=== PATIENT | female | born 1930 | race Caucasian/White ===

== ENCOUNTER 2017-01-05 12:50 | Outpatient (CLI) | payer MEDICARE ==
--- NOTE | 2017-01-05 13:43 | RAD ---
THREE VIEWS LUMBOSACRAL SPINE: COMPARISON: MRI lumbar spine 10/31/16. HISTORY: Spondylolisthesis in the lumbar region. FINDINGS: Lateral views of the cervical spine were performed in neutral, flexion, and extension. There is gra de I anterolisthesis of L4 on L5. The vertebral bodies demonstrate normal height without fracture. The alignment of the spine is unchanged with flexion and extension. Posterior facet arthrosis is s een in the lower lumbosacral spine. IMPRESSION: Degenerative change of the lower lumbosacral spine with unchanged alignment with bending. POS: RAMESH
== END 2017-01-05 12:51 | disposition home or self-care (01) ==
LOC: TBSIIMAG 12:50
PROVIDERS: ATTEND Neurological Surgery
DX: M43.16 Spondylolisthesis, lumbar region (principal); M47.817 Spondylosis without myelopathy or radiculopathy, lumbosacral region
CPT/HCPCS: 72100

== ENCOUNTER 2017-01-25 08:53 | Outpatient (CLI) | payer MEDICARE | END 2017-01-25 08:54 | disposition home or self-care (01) | LOC: LABBT 08:53 | PROVIDERS: ATTEND Neurological Surgery | DX: Z01.818 Encounter for other preprocedural examination (principal); M43.16 Spondylolisthesis, lumbar region ==

== ENCOUNTER 2017-02-01 06:02 | Day surgery (SDC) | payer MEDICARE ==
[2017-01-25 09:23] VITALS: BMI 32.9
--- NOTE | 2017-02-01 02:28 | HP ---
HISTORY OF PRESENT ILLNESS: Ms. Andujar is a pleasant 87-year-old woman who presents for evaluation o f low back pain which she also terms as bilateral lower extremity weakness. She reports what sounds to be neurogenic claudication symptoms, but also has developed some difficulty with standing from a seated position. MRI at [facility] reveals severe canal and foraminal stenosis at L4-L5 with a gra de I slip. There is distraction at the facet joints bilaterally as well. She has had injections wi th Dr. Milner which helped some anterior thigh pains, which she no longer has then referred to us f or further evaluation. PAST MEDICAL HISTORY: Breast cancer, hyperlipidemia, dyspepsia, osteoporosis, irritable bowel syndr ome, Meniere's disease, diverticulosis, vertigo, and tinnitus. ALLERGIES: KEFLEX. PHYSICAL EXAMINATION: PSYCHIATRIC: The patient is alert and oriented x3. NEUROLOGIC: Gait is antalgic. She uses a walker for assistance. Lower extremity: Motor exam reve als full strength bilaterally in all muscle groups in lower extremities. She has a negative straigh t leg raise bilaterally. She has normal reflexes bilaterally at the patella. ASSESSMENT: Neurogenic claudication and spondylolisthesis. PLAN: We did obtain flexion, extension views of her lumbar spine, which shows stability at the slip . So I discussed the decompressive surgery with her. Dr. Watson then met with the patient, reviewed imaging and ultimately advocated for an L4-L5 decompression. He explained to the patient the risks , benefits, and alternatives to the procedure. The patient expressed understanding and would like t o move forward with surgery as discussed. I do believe the patient is mentally competent and capabl e of making medical decisions for herself and we will move forward with surgery as planned. This is Joel Koenig PA-C, dictating under Dr. Watson.
[2017-02-01] MEDS ORDERED: Clindamycin/D5W 900 mg/50 ml Premix Bag ONE ×2 (06:39→14:21)
[2017-02-01] MEDS ORDERED: Levofloxacin 500 mg/D5W 100 ml Premix Bag ONE (06:40)
[2017-02-01] MEDS ORDERED: Thrombin 5000 UNITS/5 ML VIAL ONE (06:59)
[2017-02-01] MEDS ORDERED: Bupivacaine PF 0.5% 30 ML VIAL ONE (06:59)
[2017-02-01] MEDS ORDERED: Bupivacaine/Epinephrine 0.25% 30 ML VIAL ONE (06:59)
[2017-02-01] MEDS ORDERED: Fentanyl 250 MCG/5 ML VIAL ONE (07:51)
[2017-02-01] MEDS ORDERED: Lidocaine 1% PF 5 ML VIAL ONE (08:39)
[2017-02-01] MEDS ORDERED: Glycopyrrolate 0.2 MG/ML 5 ML SYRINGE ONE (08:39)
[2017-02-01] MEDS ORDERED: Propofol 200 MG/20 ML VIAL ONE (08:39)
[2017-02-01] MEDS ORDERED: Ondansetron HCl/PF 4 MG/2 ML Vial ONE ×2 (08:39→10:25)
[2017-02-01] MEDS ORDERED: Fentanyl 100 MCG/2 ML VIAL ONE (10:30)
[2017-02-01] MEDS ORDERED: Metoclopramide HCl 10 MG/2 ML VIAL ONE (11:00)
[2017-02-01] MEDS ORDERED: traMADol HCl 50 MG TAB ONE ×2 (12:52→13:36)
--- NOTE | 2017-02-03 08:47 | OP ---
DATE OF PROCEDURE: 02/01/2017 SURGEON: Jv Watson M.D. VP OF MARKETING: Joel Koenig PA-C INDICATION: Pain. DIAGNOSIS: Lumbar stenosis. PROCEDURE: L4-5 lumbar decompression. ANESTHESIA: General. TECHNIQUE: The patient was brought into the operating room and placed under general anesthesia. She was flipped from a supine to a prone position on the operating room table. A linear incision was pl anned over the L4-L5 segment. After prepping and draping and after an appropriate operative pause, t he incision was created. Soft tissues were swept away from midline. Self-retaining retractors were placed in the wound for optimal exposure. After confirming the appropriate level with C-arm fluorosc opy, a high-speed cutting drill bit as well as 2, 3 and 4 mm Kerrisons used to perform a laminectomy at the L4-5 segment. The laminectomy included the medial aspect of the facet joints to decompress th e central canal and the lateral recesses. After complete decompression, the wound was irrigated. He mostasis was maintained throughout. The wound was then closed in anatomic layers and a pressure dres sing was applied. There were no known procedural complications.
--- NOTE | 2017-02-24 08:45 | PRG ---
DATE OF PROCEDURE: 02/01/2017 SURGEON: Jv Watson M.D. RADIO ADJUSTER: Joel Koenig PA-C INDICATION: Pain. DIAGNOSIS: Lumbar stenosis. PROCEDURE: L4-5 lumbar decompression. ANESTHESIA: General. TECHNIQUE: The patient was brought into the operating room and placed under general anesthesia. She was flipped from a supine to a prone position on the operating room table. A linear incision was pl anned over the L4-L5 segment. After prepping and draping and after an appropriate operative pause, t he incision was created. Soft tissues were swept away from midline. Self-retaining retractors were placed in the wound for optimal exposure. After confirming the appropriate level with C-arm fluorosc opy, a high-speed cutting drill bit as well as 2, 3 and 4 mm Kerrisons used to perform a laminectomy at the L4-5 segment. The laminectomy included the medial aspect of the facet joints to decompress th e central canal and the lateral recesses. After complete decompression, the wound was irrigated. He mostasis was maintained throughout. The wound was then closed in anatomic layers and a pressure dres sing was applied. There were no known procedural complications.
== END 2017-02-01 15:25 | disposition home or self-care (01) ==
LOC: SDC 06:02
PROVIDERS: ATTEND Neurological Surgery
PROC: 00NY0ZZ Release Lumbar Spinal Cord, Open Approach (ICD-10-PCS; principal; 2017-02-01)
DX: M48.062 Spinal stenosis, lumbar region with neurogenic claudication (principal); M43.16 Spondylolisthesis, lumbar region; M81.0 Age-related osteoporosis without current pathological fracture; K58.9 Irritable bowel syndrome, unspecified; H81.09 Meniere's disease, unspecified ear; H93.19 Tinnitus, unspecified ear; Z79.82 Long term (current) use of aspirin; Z79.899 Other long term (current) drug therapy; Z91.018 Allergy to other foods; Z88.1 Allergy status to other antibiotic agents; Z96.649 Presence of unspecified artificial hip joint; Z90.710 Acquired absence of both cervix and uterus; Z90.12 Acquired absence of left breast and nipple; Z98.890 Other specified postprocedural states; Z85.3 Personal history of malignant neoplasm of breast
CPT/HCPCS: 76001; 96374; J1956; J2001; J2405; J2704; J2765; J3010; J3490; S0020

== ENCOUNTER 2017-03-09 11:30 | Outpatient (CLI) | payer MEDICARE | END 2017-03-09 11:31 | disposition home or self-care (01) | LOC: BICRAD 11:30 | PROVIDERS: ATTEND Physician Assistant | DX: S99.921A Unspecified injury of right foot, initial encounter (principal) ==

== ENCOUNTER 2018-10-01 01:06 | Emergency (ER) | payer MEDICARE ==
[2018-10-01 02:37] LABS: #Basophils 0.1 thou/uL (0.0-0.2); #Eosinphils 0.1 thou/uL (0.0-0.7); #Lymphocytes 2.3 thou/uL (1.20-3.40); #Monocytes 0.3 thou/uL (0.11-0.59); %Basophils 0.8 % (0.0-1.0); %Eosinophils 1.7 % (0.0-10.0); %Lymphocytes 33.9 % (21.0-51.0); %Monocytes 4.8 % (0.0-10.0); %Neutrophils 58.8 % (42.0-75.0); Hemoglobin 13.1 g/dL (12.0-16.0); Mean Corpuscular HGB CONC 31.7 g/dL (32.0-36.0); Mean Corpuscular Hemoglobin 30.2 pg (27.0-31.0); Mean Corpuscular Volume 95.3 fL (78.0-98.0); Mean Platelet Volume 7.6 fL (7.4-10.4); Platelet Count 188 thou/uL (130-400); RBC Distribution Width 11.7 % (11.5-14.5); Red Blood Cell (RBC) Count 4.34 mill/uL (4.20-5.40); White Blood Cell (WBC) Count 6.7 thou/uL (4.8-10.8)
[2018-10-01 02:58] LABS: ALT (SGPT) 15 U/L (8-55); AST (SGOT) 14 U/L (5-34); Albumin 3.7 g/dL (3.4-4.8); Alkaline Phosphatase 42 U/L (40-150); Anion Gap 11 mmol/L (10-20); BUN (Urea Nitrogen) 23 mg/dL (9.8-20.1); Bilirubin, Total 0.6 mg/dL (0.2-1.2); Calc. Creatinine Clearance 0 mL/min (70-130); Calcium 9.8 mg/dL (7.8-10.44); Carbon Dioxide 31 mmol/L (23-31); Chloride 105 mmol/L (98-107); Estimated GFR-MDRD 64; Globulin 2.4 g/dL (2.4-3.5); Glucose 163 mg/dL (83-110); Potassium 4.6 mmol/L (3.5-5.1); Protein, Total 6.1 g/dL (6.0-8.3); Sodium 142 mmol/L (136-145)
[2018-10-01 03:22] LABS: Bacteria/HPF None Seen HPF (None Seen); Bilirubin Negative (Negative); Blood, Urine Negative (Negative); Clarity Clear (Clear); Glucose, Urine (Dipstick) Normal (Negative); Leukocyte 75 Leu/uL (Negative); Nitrite Negative (Negative); Protein, Urine (Dipstick) Negative (Neg-Trace); RBC/HPF 0-3 HPF (0-3); Squamous Epithelial 0-3 HPF (0-3); Urobilinogen Normal mg/dL (Less than 2)
[2018-10-01] MEDS ORDERED: cefTRIAXone\\ROCEPHIN 1 GM VIAL ONE (04:39)
[2018-10-01] MEDS ORDERED: Ketorolac Tromethamine 30 MG/ML VIAL ONE (04:39)
[2018-10-01] MEDS ORDERED: Ondansetron ODT 4 MG TAB ONE (04:52)
--- NOTE | 2018-10-01 08:26 | CT ---
CT OF THE ABDOMEN AND PELVIS WITH IV CONTRAST: INDICATION: An 88-year-old female with back pain radiating into the right flank. COMPARISON: CT of the abdomen with and without contrast dated 10/04/2016 and 03/29/2016. A CT of the abdomen and p anshul was reviewed from 08/19/2015. A CT of the abdomen from 12/04/2006 was also reviewed. FINDINGS: There is bibasilar atelectasis. The myolipoma and left adrenal adenoma has been stable. Liver, pancreas, and spleen appear within normal limits. The complex cystic mass involving the right mid kidney is stable measuring 1.3 cm. Left renal cyst i s stable. There is a stable ectasia of the infrarenal abdominal aorta measuring 2.9 cm. There is a retroaortic left renal vein. No free fluid or enlarged lymph nodes are evident. There is scattered colonic diverticulosis. There is a moderate amount of retained stool. The small bowel is of normal caliber. Reproductive structures are surgically absent. There is a right total hip prosthesis. There is scattered degenerative and osteoarthritic change. IMPRESSION: 1. No definite acute abnormality. 2. Complex cystic mass involving the right mid kidney is stable measuring 1.3 cm. 3. Stable left adrenal adenoma and left adrenal myelolipoma. 4. Colonic diverticulosis. 5. A moderate amount of retained stool within the colon. 6. Infrarenal abdominal aortic ectasia, stable. POS: BH
[2018-10-01] MEDS ORDERED: Iopamidol 370 76% 100 ML VIAL ONE (13:34)
== END 2018-10-01 05:49 | disposition home or self-care (01) ==
LOC: ERS 01:06
DX: N12 Tubulo-interstitial nephritis, not specified as acute or chronic (principal); Z87.891 Personal history of nicotine dependence
CPT/HCPCS: 36415; 74177; 80053; 81003; 81015; 85025; 96361; 96372; 96374; J0696; J1885; Q0162; Q9967

== ENCOUNTER 2019-01-15 14:16 | Observation (INO) | payer MEDICARE ==
[~2019-01-15 14:16] MED LIST: Prevnar 13-Val Conj/PF 0.5 ML SYRINGE IM ONE
--- NOTE | 2019-01-15 15:39 | RAD ---
XR Pelvis AP STANDARD: 01/15/2019 2:34 PM CLINICAL INDICATION: Trauma COMPARISON: 01/02/2004 FINDINGS: Fracture:No fracture. Arthropathy:Scattered osteoarthritis. There is a right hip prosthesis with appropriate alignment. Incidental findings:Pelvic phleboliths. IMPRESSION: 1. No acute osseous abnormality.
--- NOTE | 2019-01-15 15:41 | RAD ---
XR Lumbar Spine 2 Or 3 View: 01/15/2019 2:34 PM CLINICAL INDICATION: Trauma COMPARISON: 01/05/2017 FINDINGS: Fracture:There is mild anterior height loss and cortical irregularity of T12 vertebral body. Arthropathy:Multilevel degenerative change of the lumbar spine with grade 1 spondylolisthesis of L4-5 . Incidental findings:Atherosclerosis. Partially imaged hip hardware. IMPRESSION: Mild anterior wedge fracture of T12. Correlate clinically.
[2019-01-15] MEDS ORDERED: HYDROcodone/Acetaminophen 5/325 mg Tablet ONE (16:31)
[2019-01-15] MEDS ORDERED: Ondansetron ODT 4 MG TAB ONE (17:38)
[2019-01-15 17:57] LABS: #Basophils 0.1 thou/uL (0.0-0.2); #Eosinphils 0.1 thou/uL (0.0-0.7); #Monocytes 0.4 thou/uL (0.11-0.59); #Neutrophils 9.6 thou/uL (1.40-6.50); %Basophils 0.7 % (0.0-1.0); %Eosinophils 0.5 % (0.0-10.0); %Lymphocytes 16.2 % (21.0-51.0); %Monocytes 3.5 % (0.0-10.0); %Neutrophils 79.1 % (42.0-75.0); Hemoglobin 15.3 g/dL (12.0-16.0); Mean Corpuscular HGB CONC 33.6 g/dL (32.0-36.0); Mean Corpuscular Hemoglobin 31.2 pg (27.0-31.0); Mean Corpuscular Volume 92.9 fL (78.0-98.0); Mean Platelet Volume 7.5 fL (7.4-10.4); Platelet Count 224 thou/uL (130-400); RBC Distribution Width 11.6 % (11.5-14.5); Red Blood Cell (RBC) Count 4.88 mill/uL (4.20-5.40); White Blood Cell (WBC) Count 12.2 thou/uL (4.8-10.8)
[2019-01-15 18:17] LABS: ALT (SGPT) 21 U/L (8-55); AST (SGOT) 20 U/L (5-34); Albumin 4.4 g/dL (3.4-4.8); Alkaline Phosphatase 54 U/L (40-110); Anion Gap 13 mmol/L (10-20); BUN (Urea Nitrogen) 20 mg/dL (9.8-20.1); Bilirubin, Total 0.5 mg/dL (0.2-1.2); Calc. Creatinine Clearance 0 mL/min (70-130); Calcium 10.2 mg/dL (7.8-10.44); Carbon Dioxide 25 mmol/L (23-31); Chloride 108 mmol/L (98-107); Estimated GFR-MDRD 69; Glucose 198 mg/dL (83-110); Protein, Total 7.4 g/dL (6.0-8.3); Sodium 142 mmol/L (136-145)
--- NOTE | 2019-01-15 19:16 | RAD ---
Chest AP view INDICATION: Fall COMPARISON: May 05, 2015 2 view chest radiograph FINDINGS: Lungs:The lungs are clear Cardiac silhouette:The cardiac silhouette is accentuated due to the patient being rotated to the righ t. No definite abnormality is seen. Pulmonary vasculature:Normal Pleural spaces:No pleural effusion or pneumothorax is demonstrated. Upper abdomen:No abnormality seen. Osseous structures: No acute osseous abnormality. Additional findings:Stable surgical clips within the left axilla. IMPRESSION: No acute cardiopulmonary abnormality. Some limitation exam as above.
[2019-01-15 21:29] LABS: Bilirubin Negative (Negative); Blood, Urine Negative (Negative); Glucose, Urine (Dipstick) 500 mg/dL (Negative); Leukocyte Negative (Negative); Nitrite Negative (Negative); Protein, Urine (Dipstick) Negative (Neg-Trace); Urobilinogen 0.2 mg/dL (Less than 2)
[2019-01-15 21:30] LABS: Clarity Hazy (Clear)
[2019-01-15] MEDS ORDERED: HYDROcodone/Acetaminophen 5/325 mg Tablet PO PRN ×2 (22:38)
[2019-01-15] MEDS ORDERED: Ondansetron ODT 4 MG TAB SL PRN (22:38)
[2019-01-15] MEDS ORDERED: Ondansetron PF 4 MG/2 ML Vial IVP PRN (22:38)
[2019-01-15] MEDS ORDERED: Acetaminophen 325 MG TAB PO PRN (22:38)
[2019-01-15] MEDS ORDERED: Sodium Chloride 0.9% 1,000 ML IV SCH (22:38)
[2019-01-16] MEDS: Sodium Chloride 0.45% 1,000 ML IV SCH ×3 (00:08→18:15)
[2019-01-16 00:26] VITALS: BMI 32.8
[2019-01-16 05:44] LABS: #Eosinphils 0.1 thou/uL (0.0-0.7); #Lymphocytes 2.1 thou/uL (1.20-3.40); #Monocytes 0.3 thou/uL (0.11-0.59); #Neutrophils 6.4 thou/uL (1.40-6.50); %Basophils 0.5 % (0.0-1.0); %Eosinophils 1.1 % (0.0-10.0); %Lymphocytes 23.6 % (21.0-51.0); %Monocytes 3.8 % (0.0-10.0); Hemoglobin 14.5 g/dL (12.0-16.0); Mean Corpuscular HGB CONC 34.1 g/dL (32.0-36.0); Mean Corpuscular Hemoglobin 31.9 pg (27.0-31.0); Mean Corpuscular Volume 93.4 fL (78.0-98.0); Mean Platelet Volume 8.1 fL (7.4-10.4); Platelet Count 202 thou/uL (130-400); RBC Distribution Width 11.7 % (11.5-14.5); Red Blood Cell (RBC) Count 4.55 mill/uL (4.20-5.40); White Blood Cell (WBC) Count 9.1 thou/uL (4.8-10.8)
[2019-01-16 06:26] LABS: ALT (SGPT) 17 U/L (8-55); AST (SGOT) 18 U/L (5-34); Albumin 3.9 g/dL (3.4-4.8); Alkaline Phosphatase 53 U/L (40-110); Anion Gap 14 mmol/L (10-20); BUN (Urea Nitrogen) 19 mg/dL (9.8-20.1); Bilirubin, Total 0.8 mg/dL (0.2-1.2); Calc. Creatinine Clearance 69 mL/min (70-130); Calcium 9.2 mg/dL (7.8-10.44); Carbon Dioxide 20 mmol/L (23-31); Chloride 108 mmol/L (98-107); Estimated GFR-MDRD 75; Globulin 2.8 g/dL (2.4-3.5); Glucose 185 mg/dL (83-110); Magnesium 2.2 mg/dL (1.6-2.6); Potassium 4.2 mmol/L (3.5-5.1); Protein, Total 6.7 g/dL (6.0-8.3); Sodium 138 mmol/L (136-145)
[2019-01-16] MEDS: HYDROcodone/Acetaminophen 5/325 mg Tablet PO PRN (16:40)
[2019-01-16] MEDS ORDERED: Senokot S 8.6-50 MG TAB PO PRN (16:42)
[2019-01-16] MEDS ORDERED: Acetaminophen 325 MG TAB PO PRN (16:42)
[2019-01-16] MEDS ORDERED: Ondansetron PF 4 MG/2 ML Vial IVP PRN (16:42)
[2019-01-16] MEDS ORDERED: Enoxaparin Sodium 40 MG/0.4 ML SYRINGE SC SCH (17:00)
[2019-01-16] MEDS ORDERED: Polyethylene Glycol OPTH DROP 15 ML BOT EA EYE PRN (17:27)
[2019-01-16] MEDS ORDERED: Dicyclomine 20 MG TAB PO PRN (17:27)
[2019-01-16] MEDS ORDERED: Dextrose 5% in Water 1,000 ML IV PRN (17:29)
[2019-01-16] MEDS ORDERED: Dextrose 50% Abboject 50 ML SYRINGE SLOW IVP PRN (17:29)
[2019-01-16] MEDS: Sodium Chloride 0.9% 1,000 ML IV SCH (18:28)
[2019-01-16] MEDS: Famotidine 20 MG TAB PO SCH (20:32)
--- NOTE | 2019-01-16 20:42 | HP ---
PRESENTING COMPLAINT: Back pain after fall. HISTORY OF PRESENT ILLNESS: The patient with a past medical history of Meniere disease, hyperlipidemia, history of breast cancer, status post left mastectomy, presented with status post fall at home. As per the patient, she was coming out of the bed, when she slipped and hit her back to the ground and complaining of back pain. Initial workup in the emergency room showed T12 anterior mild wedge fracture. The patient due to intractable pain, being admitted for pain control. The patient also complained of mild nausea. Denies vomiting, diarrhea, or constipation. Complains of increased urination, which is chronic. Denies any fever production or swelling of the feet. Complains of mild headache. Also being complaining of dizziness, which as per the patient is chronic due to Meniere disease. Currently pain is 5/5. As per the patient, increase in movement causing her more pain. SYSTEMIC REVIEW: As mentioned above. PAST MEDICAL HISTORY: As mentioned above. PAST SURGICAL HISTORY: History of mastectomy, history of hysterectomy. SOCIAL HISTORY: Denies smoking, alcohol abuse, or drug abuse. ALLERGIES: TO CEPHALEXIN. HOME MEDICATIONS: 1. Dicyclomine. 2. Cranberry. 3. Polyethylene glycol. 4. Aspirin. PHYSICAL EXAMINATION: VITAL SIGNS: Blood pressure 183/81, temperature 98.4, pulse 75, respirations 20, and oxygen saturation 94%. GENERAL: The patient lying in bed comfortably, not in any distress. HEENT: Conjunctive are normal. Oral mucosa mildly dry. NECK: Supple. No JVD. No lymphadenopathy. CHEST: Normal vesicular breathing. No rhonchi. No wheezing. HEART: Sound normal. No murmur, gallop, or rub. ABDOMEN: Soft and benign. No tenderness or visceromegaly. EXTREMITIES: Negative edema in feet. No rash. No cyanosis. Increased pain in thoracic, lower vertebral area. LABORATORY DATA: CMP unremarkable. LFTs normal, alkaline phosphatase 53. Vitamin B12, 288. Folic acid 17. CBC, unremarkable. UA negative. Pelvis x-ray, no acute osseous abnormality. Lumbar spine x-ray, mild anterior wedge fracture of T12, correlate anteriorly. X-ray chest, no acute cardiopulmonary abnormality. HOSPITAL SUMMARY: 1. The patient is status post mechanical fall with back pain and x-ray lumbar spine positive for mild anterior wedge fracture of T12. ED physician spoke with Neurosurgery Team, physician culinary assistant, Joel Koenig, recommended LSO brace, PT/OT, and pain control. We will continue pain medications. We will request Neurosurgery to discuss the plan with the patient and family. We will continue pain medication as needed. The patient advised to mobilize. 2. History of Meniere disease. Continue meclizine as needed. As per the patient, she does not use any medication at home. 3. History of left breast cancer, status post mastectomy. 4. Deep venous thrombosis and gastrointestinal prophylaxis. Plan discussed with the patient and nursing staff. Job ID: [id number]
[2019-01-17 05:41] LABS: #Basophils 0.1 thou/uL (0.0-0.2); #Eosinphils 0.1 thou/uL (0.0-0.7); #Monocytes 0.4 thou/uL (0.11-0.59); #Neutrophils 4.7 thou/uL (1.40-6.50); %Basophils 0.7 % (0.0-1.0); %Eosinophils 2.1 % (0.0-10.0); %Lymphocytes 27.2 % (21.0-51.0); %Monocytes 4.8 % (0.0-10.0); %Neutrophils 65.2 % (42.0-75.0); Hemoglobin 14.5 g/dL (12.0-16.0); Mean Corpuscular Hemoglobin 30.9 pg (27.0-31.0); Mean Corpuscular Volume 93.5 fL (78.0-98.0); Mean Platelet Volume 7.9 fL (7.4-10.4); Platelet Count 181 thou/uL (130-400); RBC Distribution Width 11.6 % (11.5-14.5); White Blood Cell (WBC) Count 7.3 thou/uL (4.8-10.8)
[2019-01-17 05:59] LABS: Anion Gap 12 mmol/L (10-20); BUN (Urea Nitrogen) 14 mg/dL (9.8-20.1); Calc. Creatinine Clearance 66 mL/min (70-130); Calcium 9.1 mg/dL (7.8-10.44); Carbon Dioxide 25 mmol/L (23-31); Chloride 109 mmol/L (98-107); Estimated GFR-MDRD 72; Glucose 200 mg/dL (83-110); Potassium 4.1 mmol/L (3.5-5.1); Sodium 142 mmol/L (136-145)
[2019-01-17] MEDS: HYDROcodone/Acetaminophen 5/325 mg Tablet PO PRN ×4 (07:50→22:35)
[2019-01-17] MEDS: Famotidine 20 MG TAB PO SCH ×2 (07:50→20:36)
[2019-01-17] MEDS: Enoxaparin Sodium 40 MG/0.4 ML SYRINGE SC SCH (07:52)
[2019-01-17] MEDS: Sodium Chloride 0.9% 1,000 ML IV SCH (07:52)
[2019-01-17] MEDS: Aspirin 325 MG TAB PO SCH (07:52)
[2019-01-17] MEDS: HumaLOG 300 UNITS/3 ML VIAL SC PRN (12:23)
[2019-01-17] MEDS ORDERED: Amlodipine 5 MG TAB PO SCH (14:30)
--- NOTE | 2019-01-17 15:24 | PDOC.HOSPP ---
- Subjective Encounter Date: 01/17/19 Subjective: pt seen feeling better today , says back pain getting better today with pain meds , able to walk with PT Denies chest pain, SOB headache dizziness - Objective Vital Signs & Weight: Vital Signs (12 hours) Temp Pulse Resp BP Pulse Ox 01/17/19 12:00 98.1 F 01/17/19 11:32 98.1 F 56 L 18 161/81 H 93 L 01/17/19 08:00 98.6 F 01/17/19 07:32 98.6 F 83 18 183/97 H 91 L 01/17/19 04:12 98.3 F 72 16 178/108 H 92 L Weight Admit Weight 179 lb 9.6 oz Weight 179 lb 9.6 oz I&O: 01/16/19 01/17/19 01/18/19 06:59 06:59 06:59 Intake Total 10 2915 240 Output Total 1400 Balance 10 1515 240 Result Diagrams: 01/17/19 05:20 01/17/19 05:20 Additional Labs: Accuchecks 01/17/19 01/17/19 11:35 04:40 POC Glucose 168 H 176 H Hospitalist ROS - Review of Systems Constitutional: denies: fever Eyes: denies: pain ENT: denies: ear pain Respiratory: denies: cough Cardiovascular: denies: chest pain Gastrointestinal: denies: nausea Genitourinary: denies: dysuria Musculoskeletal: reports: back pain Skin: denies: rash Neurological: denies: weakness - Medication Medications: Active Medications Generic Name Dose Route Start Last Admin Trade Name Freq PRN Reason Stop Dose Admin Hydrocodone Bitart/Acetaminophen 1 tab 01/16/19 16:18 01/17/19 13:07 Benton 5/325 PO 1 tab Q4H PRN Administration Pain Aspirin 325 mg 01/17/19 09:00 01/17/19 07:52 Aspirin PO 325 mg DAILY MANE Administration Enoxaparin Sodium 40 mg 01/17/19 09:00 01/17/19 07:52 Lovenox SC 40 mg 0900 MANE Administration Famotidine 20 mg 01/16/19 21:00 01/17/19 07:50 Pepcid PO 20 mg BID MANE Administration Insulin Human Lispro 0 units 01/16/19 17:29 01/17/19 12:23 Humalog SC 2 unit .MILD SLIDING SCALE PRN Administration Mild Correctional Scale Ondansetron HCl 4 mg 01/16/19 16:42 01/17/19 03:34 Zofran IVP 4 mg Q6H PRN Administration Nausea/Vomiting - Exam General Appearance: awake alert Eye: anicteric sclera ENT: normocephalic atraumatic Neck: supple Heart: no murmur Respiratory: no wheezes Gastrointestinal: non-tender Extremities: no clubbing Skin: no lesions Neurological: normal sensation to touch Musculoskeletal - other findings: back pain Psychiatric: A&O x 3 Hosp A/P - Plan Intractable Back pain Due to mild T12 end plate fracture , Neurosurgery recommended continue conservative approach , LSO brace better today able to walk today with PT says she lives alone and has problem walking with movement and pain gets worse with movement Continue pain meds as needed and PT HTN high bp readings possible due to pain d/magda IVF and added low dose amlodipine H/O Meniers disease says has chronic dizziness symptoms and does not take meds at home H/O Left breast ca s/p Left mastectomy f/o oncologist out pt DVT/GI prophyalxis Hard of hearing DNR Plan disposition to snf possible in am
[2019-01-17] MEDS: Morphine 2 MG/ML SYRINGE SLOW IVP PRN (19:21)
[2019-01-18] MEDS: Morphine 2 MG/ML SYRINGE SLOW IVP PRN (02:02)
[2019-01-18] MEDS: HYDROcodone/Acetaminophen 5/325 mg Tablet PO PRN ×2 (05:39→13:06)
[2019-01-18] MEDS: Enoxaparin Sodium 40 MG/0.4 ML SYRINGE SC SCH (08:14)
[2019-01-18] MEDS: Aspirin 325 MG TAB PO SCH (08:14)
[2019-01-18] MEDS: Famotidine 20 MG TAB PO SCH (08:14)
[2019-01-18 08:18] VITALS: TEMP 97.8
[2019-01-18 11:11] VITALS: BP 137/81
[2019-01-18] MEDS: HumaLOG 300 UNITS/3 ML VIAL SC PRN (11:43)
--- NOTE | 2019-01-18 13:10 | CON ---
DATE OF CONSULTATION: 01/17/2019 Ms. Andujar is an 89-year-old woman who was admitted to [facility] for fall with back pain and CT evidence of acute mild T12 compression deformity. She reports midline axial back pain in the region of this fracture. She has already been fitted for a Chairback LSO at our recommendation to the emergency department. She denies any radicular symptoms and actually has been ambulating reasonably well with a walker. From Neurosurgery's perspective, this is a definitively nonsurgical injury. We will plan to follow up with her in the outpatient setting in 2 weeks. She will need to wear the brace only when up and about and mostly just for comfort when she is lying in bed or seated, she can actually remove the brace. We will arrange followup. Job ID: [id number]
--- NOTE | 2019-01-19 02:01 | DIS ---
DATE OF ADMISSION: 01/15/2019 DATE OF DISCHARGE: 01/18/2019 DISCHARGE DIAGNOSES: 1. Intractable back pain due to mild anterior T12 endplate fracture. 2. History of Meniere disease. 3. History of left breast cancer, status post left mastectomy. 4. High blood pressure readings. 5. Hard of hearing. 6. DNR/DNI. 7. Diabetes mellitus. PHYSICAL EXAMINATION: VITAL SIGNS: Blood pressure 137/81, temperature 97.8, pulse 60, respirations 16, oxygen saturation 93% on room air. GENERAL: The patient is awake, alert, in no distress. CHEST: Normal vesicular breathing. HEART: Sounds normal. ABDOMEN: Soft. Negative edema of feet. Mild back tenderness. LABORATORY DATA: CBC unremarkable. BMP unremarkable. UA negative. X-ray of chest negative for acute findings. Pelvic x-ray negative for acute findings. Lumbar spine x-ray, mild anterior wedge fracture of T12. HOSPITAL SUMMARY: The patient, Con Ott was admitted with a fall at home while moving out of bed and hit her back and in the emergency room, workup showed mild anterior wedge fracture of T12. The patient was admitted to control pain. The patient treated with pain medications. The patient also evaluated by Neurosurgery. The patient recommended LSO brace, pain medication, physical therapy, and occupational therapy. The patient evaluated by Physical Therapy and recommended usp with rehabilitation facility. The patient currently stable, being discharged to rehabilitation facility. The patient continued home medication. The patient currently feeling better today. She is being discharged in a stable condition. Given prescription for pain medications. Job ID: [id number]
== END 2019-01-18 17:15 ==
LOC: ERS 14:16 → T4-B 17:38
PROVIDERS: ADMIT Internal Medicine; ATTEND Internal Medicine
DX: S22.088A Other fracture of T11-T12 vertebra, initial encounter for closed fracture (principal); E78.5 Hyperlipidemia, unspecified; H81.09 Meniere's disease, unspecified ear; R03.0 Elevated blood-pressure reading, without diagnosis of hypertension; Z66 Do not resuscitate; E11.9 Type 2 diabetes mellitus without complications; H91.90 Unspecified hearing loss, unspecified ear; W01.0XXA Fall on same level from slipping, tripping and stumbling without subsequent striking against object, initial encounter; Y92.003 Bedroom of unspecified non-institutional (private) residence as the place of occurrence of the external cause; Z79.82 Long term (current) use of aspirin; Z79.899 Other long term (current) drug therapy; Z88.1 Allergy status to other antibiotic agents; Z85.3 Personal history of malignant neoplasm of breast; Z90.12 Acquired absence of left breast and nipple; Z91.018 Allergy to other foods
CPT/HCPCS: 51701; 71045; 72100; 72170; 80048; 80053 ×2; 81003; 82607; 82746; 82962 ×3; 83735; 85025 ×3; 87086; 96361; 96372 ×3; 96374; 96375; 96376; 97110; 97116 ×3; 97139 ×7; 97530 ×2; 99284; G0378 ×4; 36415; 36416; A4353; J1650; J2270; J2405; Q0162

== ENCOUNTER 2019-02-19 13:04 | Outpatient (CLI) | payer MEDICARE ==
--- NOTE | 2019-02-19 13:48 | RAD ---
EXAM: XR Thoracic Spine 3 V STANDARD PROVIDED CLINICAL HISTORY: Follow-up fracture COMPARISON: Views of the lumbar spine on 01/15/2019. FINDINGS: Wedge-shaped compression fracture T12 vertebral body is present. However, the provided images are und erpenetrated which limits osseous detail on this exam. Degree of height loss anteriorly the appear mildly increased when compared to the prior exam. Remaining vertebral body heights of the thoracic sp ine are within normal limits. Multilevel osteophytes are present. No subluxation is seen. Slightly exaggerated kyphosis at the level of the compression fracture is noted. Mild S-shaped scoliotic curva ture of the thoracic spine is present. IMPRESSION: 1. Wedge-shaped compression fracture T12 vertebral body which was also seen on study of 01/15/2019. H owever, there is limited evaluation of the fracture due to overlying soft tissue density and underpenetrated technique of the exam. The degree of height loss anteriorly does appear mildly increa sed when compared to prior study. 2. Degenerative changes thoracic spine.
== END 2019-02-19 13:05 | disposition home or self-care (01) ==
LOC: TBSIIMAG 13:04
PROVIDERS: ATTEND Neurological Surgery
DX: S22.080D Wedge compression fracture of T11-T12 vertebra, subsequent encounter for fracture with routine healing (principal); M47.814 Spondylosis without myelopathy or radiculopathy, thoracic region
CPT/HCPCS: 72072

== ENCOUNTER 2019-07-24 15:49 | Observation (INO) | payer MEDICARE ==
--- NOTE | 2019-07-24 17:03 | CT ---
CT HEAD WITHOUT CONTRAST: 07/24/19 INDICATION: Fall with head injury. No comparison. FINDINGS: There is cortical atrophy consistent with age. Moderately severe chronic ischemic white matter change . 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 No hemorrhage or mass. No acute cortical infarct. Acute lacunar infarcts cannot be excluded given the chronic ische ugo change and if there are new neurological changes, recommend further evaluation with MRI. Sinuses and mastoids are clear. IMPRESSION: There are moderate to severe chronic ischemic white matter change. Lacunar infarcts could be obscured in this chronic ischemic change. There is no evidence of acute cortical infarct or hemorrhage. POS: AGW
--- NOTE | 2019-07-24 17:11 | CT ---
CT LUMBAR SPINE: 07/24/19 HISTORY: Trauma. Multiple falls with back pain. No comparison CT. Comparison made to plain films of thoracic spine dated 02/19/19 and lumbar spine nadia ed 01/15/19. FINDINGS: Severe compression deformity of the T12 vertebra is seen. There is a vertebral plana type deformity. This compression has progressed significantly when compared to the prior exam of 02/19/19. There is slight retropulsion of the posterior cortex of T12. Degenerative disc changes are seen at multiple levels with vacuum phenomenon. There is slight superior end plate compression of the L2 vertebra which also appears to represent a n ew finding when compared to the prior lumbar spine exam. This results in mild loss of central height. Anterior and posterior height is preserved. This probably represents an acute superior end plate com pression. The L3, L4 and L5 vertebrae maintain height. At the T12-L1 level, the retropulsion and disc bulge flatten the thecal sac and results in mild centr al canal stenosis. At L1-2, disc bulge flattens the thecal sac. Mild central canal stenosis. At L2-3, diffuse disc bulge with facet hypertrophy. Mild central canal stenosis. At L3-4, disc bulge and facet hypertrophy results in mild central canal stenosis. At L4-5, mild anterolisthesis. Posterior laminectomy change. Diffuse disc bulge. Facet hypertrophy. M ild central canal stenosis. At L5-S1, mild disc bulge. No significant central canal or foraminal stenosis. IMPRESSION: 1. Progression of the severe compression deformity at T12, when compared to prior plain films of 02/19/19. There is severe loss of central and anterior height. There is mild retropulsion posteriorly as described above. 2. Evidence of acute or subacute superior end plate compression of the L2 vertebra when compared to prior studies. This results in mild loss of central height. 3. Disc bulge at multiple levels as described above. 4. 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 POS: AGW
[2019-07-24] MEDS ORDERED: Ondansetron ODT 4 MG TAB PO PRN (18:23)
[2019-07-24] MEDS ORDERED: Dextrose 5% in Water 1,000 ML IV PRN (18:23)
[2019-07-24] MEDS ORDERED: Dextrose 50% Abboject 50 ML SYRINGE SLOW IVP PRN (18:23)
[2019-07-24] MEDS ORDERED: Insulin Regular 300 UNITS/3 ML VIAL SC PRN (18:23)
[2019-07-24] MEDS ORDERED: traMADol HCl 50 MG TAB PO PRN ×2 (18:26)
[2019-07-24] MEDS ORDERED: Cyclobenzaprine 10 MG TAB PO PRN (18:26)
[2019-07-24 18:30] LABS: #Basophils 0.1 thou/uL (0.0-0.2); #Lymphocytes 2.5 thou/uL (1.20-3.40); #Monocytes 0.4 thou/uL (0.11-0.59); #Neutrophils 6.1 thou/uL (1.40-6.50); %Basophils 0.8 % (0.0-1.0); %Eosinophils 0.3 % (0.0-10.0); %Lymphocytes 27.1 % (21.0-51.0); %Monocytes 4.2 % (0.0-10.0); %Neutrophils 67.6 % (42.0-75.0); Hemoglobin 15.4 g/dL (12.0-16.0); Mean Corpuscular HGB CONC 32.6 g/dL (32.0-36.0); Mean Corpuscular Hemoglobin 31.1 pg (27.0-31.0); Mean Corpuscular Volume 95.6 fL (78.0-98.0); Mean Platelet Volume 7.8 fL (7.4-10.4); Platelet Count 238 thou/uL (130-400); RBC Distribution Width 11.6 % (11.5-14.5); Red Blood Cell (RBC) Count 4.95 mill/uL (4.20-5.40); White Blood Cell (WBC) Count 9.1 thou/uL (4.8-10.8)
[2019-07-24] MEDS ORDERED: Acetaminophen 500 MG TAB PO SCH (18:45)
[2019-07-24 18:49] LABS: ALT (SGPT) 9 U/L (8-55); AST (SGOT) 14 U/L (5-34); Albumin 3.9 g/dL (3.4-4.8); Alkaline Phosphatase 58 U/L (40-110); Anion Gap 15 mmol/L (10-20); BUN (Urea Nitrogen) 18 mg/dL (9.8-20.1); Bilirubin, Total 0.5 mg/dL (0.2-1.2); Calc. Creatinine Clearance 0 mL/min (70-130); Carbon Dioxide 23 mmol/L (23-31); Chloride 108 mmol/L (98-107); Estimated GFR-MDRD 72; Glucose 102 mg/dL (83-110); Potassium 4.1 mmol/L (3.5-5.1); Protein, Total 6.9 g/dL (6.0-8.3); Sodium 142 mmol/L (136-145)
[2019-07-24] MEDS ORDERED: cloNIDine 0.1 MG TAB PO PRN ×2 (20:00→20:03)
--- NOTE | 2019-07-24 20:20 | HP ---
TRAUMA SURGEON: Rudy Fox MD CONSULTING PHYSICIAN: Mian Rodriguez MD HISTORY OF PRESENT ILLNESS: The patient is an 89-year-old female, presented to the emergency department via EMS with a history of several falls recently. She also has a history of T-spine fractures from previous falls. The patient [facility] a [facility] at her [facility], complaining of worsening back pain. Upon my evaluation, she complained of lower back pain. Her motor and sensation were intact in bilateral upper and lower extremities. She denied back pain. CT scan of the brain was negative. The patient was alert and oriented to place and person, but was not oriented to situation or time. I spoke to her son, Corrie over the phone. He reported that her mentation has been declining over the past 6 months and her physician was doing evaluations for possible dementia. He also reported that because of COVID the patients at the fpc have been locked in their rooms and subsequently he believes that her physical strength has also declined as she is not being as active as she normally is. Neurosurgery was consulted to evaluate the patient. At the time of my evaluation, the patient denied nausea, vomiting, abdominal pain, or numbness and tingling in her bilateral upper or lower extremities. REVIEW OF SYSTEMS: All additional 10-point review of systems is negative except as indicated above. PAST MEDICAL HISTORY: Meniere disease, hypertension, hyperlipidemia, atrial fibrillation, spinal stenosis, breast cancer. She has had a mastectomy. PAST SURGICAL HISTORY: Mastectomy. SOCIAL HISTORY: The patient denies drug, tobacco, or alcohol use. She lives at a [facility] and usually uses a wheelchair to get around. MEDICATIONS: Include; 1. Aricept. 2. Lisinopril. 3. Simvastatin. 4. Senokot S. 5. Sitagliptin phosphate. 6. Pantoprazole. 7. Metformin. 8. Meclizine. 9. Aspirin 325 mg daily. 10. . ALLERGIES: NO KNOWN DRUG ALLERGIES. PHYSICAL EXAMINATION: VITAL SIGNS: Temperature 97.6, pulse 70, respirations 18, oxygen saturation 95% on room air, blood pressure 169/83. GENERAL: Well-appearing elderly female, lying in bed with no signs of acute distress. PULMONARY: Equal chest rise and fall. No signs of acute respiratory distress. CARDIAC: Regular rate and rhythm. No murmurs, gallops, or rubs. GASTROINTESTINAL: Abdomen is soft, nontender, nondistended. EXTREMITIES: 2+ pulses in all extremities. Gross motor and sensation are intact. No significant swelling noted. NEURO: GCS is 15. Gross motor and sensation are intact. The patient has tenderness over the lower T-spine and L-spine with no step-offs or deformities. LABORATORY FINDINGS: White count 9.1, hemoglobin 15.9, hematocrit 47.3, platelets 238. Sodium 142, potassium 4.1, chloride 108, bicarb 23, BUN 18, creatinine 0.76, glucose 78, phosphorus 3.0, magnesium 2.0. DIAGNOSTIC FINDINGS: CT scan of the brain demonstrates there are moderate to severe chronic ischemic white matter changes, lacunar infarcts could be obscured in this chronic ischemic change. There is no evidence of acute cortical infarct or hemorrhage. CT scan of the L-spine demonstrates progression of the severe compression deformity of T12 when compared to the prior films on 02/19/2019. There is severe loss of central and anterior height. There is mild retropulsion posteriorly as described above. Evidence of acute or subacute superior endplate compression of the L2 vertebra with compression when compared to prior study. The result is mild loss of central height. Disk bulge is at multiple levels as described above. 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 ASSESSMENT: 1. Status post multiple recent ground level falls. 2. T12 compression fracture with mild retropulsion. 3. L2 superior endplate compression fracture. 4. Acute traumatic pain secondary to spinal fractures. 5. History of Meniere disease, hypertension, hyperlipidemia, atrial fibrillation, breast cancer, diabetes, spinal stenosis, and mastectomy. PLAN: The patient will be admitted to observation for pain control and physical therapy. Neurosurgery was consulted. They evaluated the patient and recommended a clamshell TLSO brace. They are recommending conservative management. She will work with Physical and Occupational Therapy. I did speak with the family who are requesting that the patient be returned to her [facility] facility but to a skilled bed rather than rehab. The patient will have a regular diet, n.p.o. medications. We will follow up her med rec and start her home medications as clinically indicated. This patient was discussed with Dr. Fox before this dictation. Job ID: [id number]
[2019-07-24] MEDS: Senokot S 8.6-50 MG TAB PO SCH (20:55)
[2019-07-24] MEDS: Gabapentin 100 MG CAP PO SCH (20:55)
[2019-07-24] MEDS: Ibuprofen 200 MG TAB PO SCH (21:01)
--- NOTE | 2019-07-24 21:47 | PRG ---
DATE OF SERVICE: 07/24/2019 SUBJECTIVE: This is an 89-year-old female who was staying during evening rounds awake, alert, in no distress. The patient is currently oriented to person only at this time. The patient voices no complaints or concerns. The patient reports having chronic back pain. OBJECTIVE: VITAL SIGNS: Blood pressure 198/80, SpO2 of 91% on room air, pulse 76, respirations 18, and temperature 97.8. GENERAL: Elderly female, hard of hearing, lying in hospital bed, in no acute distress. PULMONARY: Equal chest rise and fall. No respiratory distress. CARDIAC: Regular rate, regular rhythm. EXTREMITIES: Moves all extremities. No focal deficit. No significant swelling. NEUROLOGIC: No focal deficits. Gross motor and sensation intact in all extremities. ASSESSMENT: 1. Status post multiple recent ground level falls. 2. T12 compression fracture with mild retropulsion. 3. L2 superior endplate compression fracture. 4. Acute traumatic pain secondary to spinal fractures. 5. History of Meniere disease, hypertension, hyperlipidemia, atrial fibrillation, breast cancer, diabetes, spinal stenosis, and mastectomy. PLAN: Continue supportive care and pain management. The patient will be on strict bedrest until she is fitted with her clamshell TLSO brace. Neurosurgery is recommending conservative management. We will give clonidine for hypertension as the patient's home medications still need to be reconciled. Once reconciled, we will restart the patient's home medications. The patient will work with Physical and Occupational Therapy tomorrow once she is fitted with her clamshell TLSO. The plan was discussed with the patient who agrees. Job ID: [id number]
[2019-07-24 22:28] VITALS: BMI 29.1
[2019-07-25] MEDS: Acetaminophen 500 MG TAB PO SCH ×2 (00:18→05:11)
--- NOTE | 2019-07-25 01:43 | CON ---
DATE OF CONSULTATION: 07/24/2019 CHIEF COMPLAINT: Low back pain. HISTORY OF PRESENT ILLNESS: Ms. Andujar is an 89-year-old female, who presents with low back pain. Per report by the emergency department, the patient has had multiple recent falls. However, upon questioning, the patient denies any falls recently; however, states she has fallen previously, but was unable to provide an estimated date. She reports pain in her lower back, but denies any radiation to her legs. She states that she has remained ambulatory. She denies any numbness or tingling in her lower extremities. PHYSICAL EXAMINATION: GENERAL: The patient is awake, alert, and appropriate. She has presbycusis. No midline cervical, or upper thoracic tenderness to palpation; however, she has point tenderness to palpation over the midline T12 and upper lumbar vertebrae. She has a good movement throughout her upper and lower extremities bilaterally. She has full strength throughout all extremities. Sensation to light touch is intact and equal throughout extremities. Gait was not assessed. IMPRESSION: 1. T12 burst fracture, progressed compared to prior imaging. 2. L2 superior endplate fracture. 3. Low back pain. 4. Prior history of fall. PLAN: This case was discussed and imaging reviewed with Dr. Rodriguez. Noncontrast brain CT was negative for acute intracranial findings. Noncontrast lumbar CT displays a T12 burst fracture and L2 superior endplate fracture. Upon review of prior imaging, noted that the T12 fracture has progressed compared to 2018. There is mild retropulsion into the canal. No indication for neurosurgical intervention at this time. Plan will be to consult [facility] for TLSO clamshell brace, to be worn when out of bed and ambulating. Our team will arrange for outpatient followup in 6 weeks with repeat upright lumbar x-rays. Please call for any neurologic changes or other concerns. This was a 50-minute initial consult, in which greater than 50% of the time spent in review of records, imaging, evaluation, examination, and formulation of plan. The remaining time was spent in counseling and coordination of care. Job ID: [id number] [facility]
[2019-07-25] MEDS: Ibuprofen 200 MG TAB PO SCH ×2 (05:11→14:24)
[2019-07-25] MEDS ORDERED: Meclizine HCl 25 MG TAB PO PRN (07:25)
[2019-07-25] MEDS ORDERED: Polyethylene Glycol OPTH DROP 15 ML BOT EA EYE PRN (07:25)
[2019-07-25] MEDS ORDERED: Acetaminophen/Codeine 30-300mg Tablet PO PRN (07:28)
[2019-07-25] MEDS ORDERED: Acetaminophen 500 MG TAB PO SCH (09:00)
[2019-07-25] MEDS: Polyethylene Glycol 3350 17 GM Packet PO SCH (09:38)
[2019-07-25] MEDS: Gabapentin 100 MG CAP PO SCH ×3 (09:39→20:41)
[2019-07-25] MEDS: Senokot S 8.6-50 MG TAB PO SCH ×2 (09:43→20:44)
[2019-07-25] MEDS ORDERED: Acetaminophen 325 MG TAB PO SCH (10:00)
[2019-07-25] MEDS: Insulin Regular 300 UNITS/3 ML VIAL SC PRN (10:57)
[2019-07-25] MEDS: Acetaminophen 325 MG TAB PO SCH ×2 (14:24→20:44)
--- NOTE | 2019-07-25 15:16 | PRG ---
DATE OF SERVICE: 07/25/2019 SUBJECTIVE: The patient was seen this morning, sitting up at bedside. Her TLSO clamshell was not in place. She reported no pain and had her complete breakfast. She reported she slept well overnight. She denied numbness and tingling in her upper and lower extremities. OBJECTIVE: VITAL SIGNS: Temperature 97.5, pulse 51, respirations 14, oxygen saturation 94% on room air, and blood pressure 131/77. GENERAL: Well-appearing elderly female, sitting up in chair with no signs of acute distress. PULMONARY: Equal chest rise and fall. Clear breath sounds bilaterally. No signs of acute respiratory distress. CARDIAC: Regular rate and rhythm. No murmurs, gallops, or rubs. GI: Abdomen is soft, nontender, nondistended. EXTREMITIES: 2+ pulses in all extremities. Gross motor and sensation intact. LABORATORY FINDINGS: There are no new laboratory findings to discuss. DIAGNOSTIC FINDINGS: There are no new diagnostic findings to discuss. ASSESSMENT: 1. Status post ground level fall at custodial. 2. T12 compression fracture with mild retropulsion. 3. L2 endplate fracture. 4. History of diabetes, hypertension, atrial fibrillation, hyperlipidemia, spinal stenosis, Meniere disease, and breast cancer. PLAN: Continue current diet and pain regimen. Physical and Occupational Therapy to see the patient today. Continue home medications as previously prescribed. Dr. Rodriguez of Neurosurgery has recommended a clamshell TLSO brace when out of bed and ambulating and follow up in 2 to 4 weeks with L-spine x-rays. We are pending insurance authorization to discharge the patient back to her custodial, but to a penitentiary bed. We will continue to provide supportive care. The patient is ready for discharge at this time. The patient was seen and evaluated by Dr. Brown and myself this morning during rounds. Job ID: [id number]
[2019-07-25] MEDS ORDERED: Donepezil HCl 5 MG TAB PO SCH (21:00)
[2019-07-25] MEDS ORDERED: Atorvastatin Calcium 10 MG TAB PO SCH (21:00)
[2019-07-25] MEDS ORDERED: Lisinopril 10 MG TAB PO SCH (21:00)
--- NOTE | 2019-07-25 23:05 | PRG ---
DATE OF SERVICE: 07/25/2019 SUBJECTIVE: The patient was seen during evening rounds, sleeping comfortably in the hospital bed. The patient did work with Physical Therapy earlier today. OBJECTIVE: VITAL SIGNS: Blood pressure 119/74, pulse 55, temperature 97, respirations 16, SpO2 of 93% on room air. Urinary output has been adequate. The patient has unmeasured voids in diaper. GENERAL: Well-appearing elderly female, resting comfortably, in no acute distress. PULMONARY: Equal chest rise and fall, respirations are even and nonlabored. ASSESSMENT: 1. Status post ground-level fall at shelter. 2. T12 compression fracture with mild retropulsion. 3. L2 endplate fracture. 4. History of diabetes, hypertension, atrial fibrillation, hyperlipidemia, spinal stenosis, Meniere disease, and breast cancer. PLAN: Continue current diet and pain regimen. Continue physical and occupational therapy. TLSO brace when out of bed. The patient is pending insurance authorization to go back to her shelter, but to a custodial bed. Job ID: [id number]
[2019-07-26] MEDS: Acetaminophen 325 MG TAB PO SCH ×2 (03:33→09:42)
[2019-07-26] MEDS: Insulin Regular 300 UNITS/3 ML VIAL SC PRN (05:44)
[2019-07-26 05:58] LABS: Anion Gap 14 mmol/L (10-20); BUN (Urea Nitrogen) 32 mg/dL (9.8-20.1); Calc. Creatinine Clearance 40 mL/min (70-130); Calcium 9.5 mg/dL (7.8-10.44); Carbon Dioxide 26 mmol/L (23-31); Chloride 104 mmol/L (98-107); Estimated GFR-MDRD 42; Glucose 217 mg/dL (83-110); Magnesium 2.1 mg/dL (1.6-2.6); Phosphorus 4.3 mg/dL (2.3-4.7); Potassium 3.7 mmol/L (3.5-5.1); Sodium 140 mmol/L (136-145)
[2019-07-26 07:18] VITALS: TEMP 98.2
[2019-07-26] MEDS ORDERED: Sodium Chloride 0.9% 500 ML IV SCH (08:00)
[2019-07-26] MEDS ORDERED: Potassium Chloride 20 MEQ TAB PO SCH (08:00)
[2019-07-26] MEDS ORDERED: Enoxaparin Sodium 30 MG/0.3 ML SYRINGE SC SCH (09:00)
[2019-07-26] MEDS: Gabapentin 100 MG CAP PO SCH (09:42)
[2019-07-26] MEDS: Senokot S 8.6-50 MG TAB PO SCH (09:43)
[2019-07-26] MEDS: Polyethylene Glycol 3350 17 GM Packet PO SCH (09:44)
[2019-07-26 11:39] VITALS: BP 132/77
[2019-07-26 14:39] LABS: Anion Gap 11 mmol/L (10-20); BUN (Urea Nitrogen) 26 mg/dL (9.8-20.1); Calc. Creatinine Clearance 57 mL/min (70-130); Carbon Dioxide 28 mmol/L (23-31); Chloride 107 mmol/L (98-107); Estimated GFR-MDRD 62; Glucose 162 mg/dL (83-110); Potassium 4.1 mmol/L (3.5-5.1); Sodium 142 mmol/L (136-145)
--- NOTE | 2019-07-26 15:27 | DIS ---
DATE OF ADMISSION: 07/24/2019 DATE OF DISCHARGE: 07/26/2019 ADMISSION DIAGNOSES: Ground level fall, T12 compression fracture with mild retropulsion, L2 endplate compression fracture. DISCHARGE DIAGNOSES: Ground level fall, T12 compression fracture with mild retropulsion, L2 endplate compression fracture, acute kidney injury which resolved before discharge. CONSULTING PHYSICIAN: Dr. Rodriguez of Neurosurgery. PROCEDURES: None. HOSPITAL COURSE: The patient is an 89-year-old female, who presented to the emergency department after two ground level falls at her alf. She was evaluated and found to have a T12 compression fracture with mild retropulsion which was acute on chronic, as well as L2 endplate compression fracture. She was admitted for physical therapy, pain control, and placement for rehab. Dr. Rodriguez was consulted, who recommended nonoperative management, clamshell TLSO when out of bed and ambulating and follow up in 2 to 4 weeks with L-spine images. She was fitted for a brace and worked with Physical and Occupational Therapy. She lives at a alf and she was discharged to a penitentiary bed at that same facility. On day #2, the patient developed an acute kidney injury. She received 500 mL normal saline. Repeat blood work after fluid resuscitation demonstrated resolution of acute kidney injury. The patient was voiding without difficulties. At the time of discharge, her pain was well controlled. She was tolerating regular diet and ambulating with a walker and PT. DISCHARGE DISPOSITION: [facility] facility. DISCHARGE CONDITION: Satisfactory. PHYSICAL EXAMINATION: VITAL SIGNS: Temperature 98.2, pulse 60, respirations 16, oxygen saturation 92 % on room air, blood pressure 132/77. GENERAL: Well-appearing elderly female, sitting up in bed with no signs of acute distress. PULMONARY: Equal chest rise and fall. No signs of acute respiratory distress. CARDIAC: Regular rate and rhythm. GI: Abdomen is soft, nontender, nondistended. EXTREMITIES: 2+ pulses in all extremities. Gross motor and sensation are intact. No significant swelling noted. NEURO: GCS is 15. Gross motor and sensation intact in all extremities. Clamshell brace fitting appropriately. DISCHARGE INSTRUCTIONS: The patient was discharged to penitentiary facility. Activity as tolerated. Weightbearing as tolerated in all extremities. Clamshell TLSO to be worn when out of bed and ambulating. Diabetic diet. Occupational and physical therapy as well as incentive spirometry and walker were ordered. DISCHARGE MEDICATIONS: Include; 1. Tylenol. 2. Tylenol No. 3. 3. Aricept. 4. Lovenox. 5. Gabapentin. 6. Lisinopril. 7. Meclizine. 8. Omeprazole. 9. MiraLAX. 10. Simvastatin. 11. Senokot-S. 12. Metformin. FOLLOWUP APPOINTMENTS: The patient is to follow up with her PCP in the next 7 days. She also is going to follow up with Dr. Rodriguez in the next 2 to 4 weeks with x- rays of her L-spine. No followup is needed with Dr. Brown in [facility]. This is merely a summary of the patient's hospitalization. For full details, please see her medical record in its entirety. This patient was evaluated by Dr. Brown and myself on the day of discharge. Job ID: [id number] MTDD
== END 2019-07-26 15:40 ==
LOC: ERS 15:49 → SURG A 19:37
PROVIDERS: ADMIT Emergency Medicine; ATTEND Emergency Medicine
DX: S22.089A Unspecified fracture of T11-T12 vertebra, initial encounter for closed fracture (principal); S32.029A Unspecified fracture of second lumbar vertebra, initial encounter for closed fracture; G89.11 Acute pain due to trauma; I10 Essential (primary) hypertension; E78.5 Hyperlipidemia, unspecified; I48.91 Unspecified atrial fibrillation; N17.9 Acute kidney failure, unspecified; E11.9 Type 2 diabetes mellitus without complications; R29.6 Repeated falls; W18.30XA Fall on same level, unspecified, initial encounter; Z79.82 Long term (current) use of aspirin; Z79.84 Long term (current) use of oral hypoglycemic drugs; Z79.899 Other long term (current) drug therapy; Z88.1 Allergy status to other antibiotic agents; Z91.018 Allergy to other foods; Z87.891 Personal history of nicotine dependence
CPT/HCPCS: 70450; 72131; 80048 ×2; 80053; 82962 ×3; 83735 ×2; 84100 ×2; 85025; 96372; 97110; 97116 ×2; 97139 ×7; 97535 ×2; 99285; G0378 ×4; 36415; 36416; G0390; J1650; J1815

== ENCOUNTER 2019-09-09 10:25 | Outpatient (CLI) | payer MEDICARE ==
--- NOTE | 2019-09-09 10:57 | RAD ---
TWO VIEWS LUMBAR SPINE: COMPARISON: 01/15/2019. CORRELATION: Lumbar spine CT 07/24/2019. HISTORY: Compression fracture. FINDINGS: Five lumbar-type vertebrae. There is a severe compression fracture at the T12 level with retropulsion. There is mild compression fracture at L2 without significant motion Persistent and essentially stable grade 1 anterolisthesis of L4 upon L5, 0.5 cm. Hypertrophic changes in the posterior elements in the lower lumbar spine are identified. Atherosclerosis of the aorta is noted. Incompletely evaluated. Identified aneurysmal dilatation of th e infrarenal abdominal aorta. Right hip prosthesis. Visualized bony pelvis is intact. Moderate degenerative change in the left hip joint space. IMPRESSION: 1. Severe T12 compression fracture with retropulsion. 2. Mild L2 compression. 3. When comparing the CT performed in July of 2019 there does not appear to be any significant change in loss of vertebral body height. Transcribed Date/Time: 09/09/2019 12:37 PM
== END 2019-09-09 10:26 | disposition home or self-care (01) ==
LOC: TBSIIMAG 10:25
PROVIDERS: ATTEND Neurological Surgery
DX: S22.008A Other fracture of unspecified thoracic vertebra, initial encounter for closed fracture (principal); S32.029A Unspecified fracture of second lumbar vertebra, initial encounter for closed fracture
CPT/HCPCS: 72100

== ENCOUNTER 2019-12-23 08:12 | Inpatient (IN) | payer MEDICARE, OTHER ==
[2019-12-23 08:47] LABS: #Lymphocytes 1.5 thou/uL (1.20-3.40); #Monocytes 0.2 thou/uL (0.11-0.59); #Neutrophils 6.8 thou/uL (1.40-6.50); %Basophils 0.6 % (0.0-1.0); %Eosinophils 0.1 % (0.0-10.0); %Lymphocytes 17.3 % (21.0-51.0); %Monocytes 2.5 % (0.0-10.0); %Neutrophils 79.5 % (42.0-75.0); Mean Corpuscular HGB CONC 33.3 g/dL (32.0-36.0); Mean Corpuscular Hemoglobin 32.1 pg (27.0-31.0); Mean Corpuscular Volume 96.4 fL (78.0-98.0); Mean Platelet Volume 8.2 fL (7.4-10.4); Platelet Count 226 thou/uL (130-400); RBC Distribution Width 11.6 % (11.5-14.5); Red Blood Cell (RBC) Count 4.69 mill/uL (4.20-5.40); White Blood Cell (WBC) Count 8.5 thou/uL (4.8-10.8)
--- NOTE | 2019-12-23 08:50 | RAD ---
XR Chest 1 View Portable HISTORY: Atrial fibrillation COMPARISON: 01/15/2019 FINDINGS: The heart size is normal. The aorta is tortuous. The lungs are well expanded without focal areas of consolidation, pneumothorax or pleural effusions. Surgical clips in the left axilla are again seen. IMPRESSION: No radiographic evidence of acute cardiopulmonary process.
[2019-12-23 09:16] LABS: ALT (SGPT) 13 U/L (8-55); AST (SGOT) 15 U/L (5-34); Albumin 3.9 g/dL (3.4-4.8); Alkaline Phosphatase 69 U/L (40-110); Anion Gap 15 mmol/L (10-20); BUN (Urea Nitrogen) 26 mg/dL (9.8-20.1); CK (CPK) 61 U/L (29-168); Calc. Creatinine Clearance 0 mL/min (70-130); Calcium 9.7 mg/dL (7.8-10.44); Carbon Dioxide 25 mmol/L (23-31); Chloride 107 mmol/L (98-107); Estimated GFR-MDRD 69; Globulin 2.7 g/dL (2.4-3.5); Glucose 153 mg/dL (83-110); Magnesium 1.9 mg/dL (1.6-2.6); Potassium 3.8 mmol/L (3.5-5.1); Protein, Total 6.6 g/dL (6.0-8.3); Sodium 143 mmol/L (136-145)
[2019-12-23 09:36] LABS: CKMB 7.2 ng/mL (0-6.6)
[2019-12-23] MEDS ORDERED: Enoxaparin Sodium 80 MG/0.8 ML SYRINGE ONE (10:36)
[2019-12-23] MEDS ORDERED: Acetaminophen 500 MG TAB ONE (10:36)
--- NOTE | 2019-12-23 11:55 | PDOC.HHP ---
Hospitalist HPI - History of Present Illness Fast heart rate History of Present Illness: PCP: Dr. Herbert The patient is a 89-year-old female with a past medical history of atrial fibrillation (on baby aspirin), hypertension, hyperlipidemia, DM 2, dementia and spinal stenosis with sciatica and recent T11-T12 fracture (08/06) that presents to the emergency department via EMS from [facility] for the above complaint. The intermediate staff reported that the patient's heart rate was sustained in the 130s to 140s and the patient may have had some right lower extremity weakness. There is no documentation of any other reported symptoms. The patient herself, denies any chest pain, heart palpitations, swelling to her lower extremities. She denies any lightheadedness, shortness of breath, cough or wheezing. She denies any abdominal pain, nausea, vomiting, diarrhea. She denies any urinary symptoms. She has been afebrile and denies any chills. EMS was called. Upon arrival, the patient was found to be hypertensive with a BP 136/78 and HR 150, with NL RR and SPO2. The patient did report right leg pain to EMS, however, there was no report of any weakness to her lower extremities. ED Course: VITAL SIGNS MonDec 23, 2019 08:18 [facility] [place] BP: 163/97, Pulse: 85, Resp: 20 (Non-Labored), Temp: 98.3 (Oral), Pain: 0, O2 sat: 96 on (Room Air), Time: 12/23/2019 08:18. VITAL SIGNS MonDec 23, 2019 09:16 [facility] [place] BP: 119/74, MAP: 89, Pulse: 68, Resp: 18, Pain: 0, O2 sat: 93 on (Room Air), Time: 12/23/2019 09:16. Medication Administration: enoxaparin 1 mg/kg Subcutaneous Given 10:45 12/23/2019 acetaminophen oral 1000 mg Oral Given 10:44 12/23/2019 Hospitalist ROS - Review of Systems All other systems reviewed; all pertinent +/- noted in HPI/Subj - Medication Medications: lisinopril tablet : Strength - 10 mg : ORAL Patient Dose: 10 mg Oral. simvastatin tablet : Strength - 20 mg : ORAL Patient Dose: 20 mg Oral. pantoprazole oral tablet,delayed release (DR/EC) : Strength - 20 mg : ORAL Patient Dose: 20mg po daily. metFORMIN tablet : Strength - 500 mg : ORAL Patient Dose: 500mg po daily. Allergies: cantalope (Unconfirmed), cephALEXin, Cephalosporins (Unconfirmed), lettuce (Unconfirmed) Hospitalist History - Past Medical History Source: patient, family, RN notes reviewed Cardiac: reports: AFIB, HTN, Hyperlipidemia KEY ACCOUNT MANAGER: reports: Dementia (Baseline ANO x2), Other (Mnire's) Gastrointestinal: reports: GERD, Irritable bowel disease Heme/Onc: reports: Cancer (Breast cancer) Musculoskeletal: reports: Other (Spinal stenosis with sciatica) Endocrine: reports: Diabetes (Type II) - Past Surgical History Past Surgical History: reports: Mastectomy (Left mastectomy), Other (Right hip surgery, back surgery) - Social History Smoking Status: Former smoker (Quit greater than 10 years ago) Alcohol: reports: None Drugs: reports: none Living Situation: [facility] Occupation: Does not work Activity level: wheelchair bound - Exam General Appearance: NAD, awake alert Eye: PERRL, anicteric sclera ENT: normocephalic atraumatic Neck: supple, symmetric, no JVD Heart: RRR, no murmur, no gallops, no rubs, normal peripheral pulses Respiratory: CTAB, no wheezes, no rales, no ronchi, normal chest expansion, no tachypnea Gastrointestinal: soft, non-tender, normal bowel sounds, no bruit, no guarding, no rigidity Extremities: no cyanosis, no edema Skin: no rashes Neurological: cranial nerve grossly intact, no focal deficits. negative: speech deficit Psychiatric: normal affect Psychiatric - other findings: A&O x2-3, follows commands, moves all extremities well Hospitalist Results - Labs Result Diagrams: 12/23/19 08:37 12/23/19 08:37 Lab results: WBC 8.5 thou/uL (4.8-10.8) 12/23/19 08:37 Hgb 15.0 g/dL (12.0-16.0) 12/23/19 08:37 Hct 45.2 % (36.0-47.0) 12/23/19 08:37 MCV 96.4 fL (78.0-98.0) 12/23/19 08:37 Plt Count 226 thou/uL (130-400) 12/23/19 08:37 Neutrophils % 79.5 % (42.0-75.0) H 12/23/19 08:37 Sodium 143 mmol/L (136-145) 12/23/19 08:37 Potassium 3.8 mmol/L (3.5-5.1) 12/23/19 08:37 Chloride 107 mmol/L (98-107) 12/23/19 08:37 Carbon Dioxide 25 mmol/L (23-31) 12/23/19 08:37 BUN 26 mg/dL (9.8-20.1) H 12/23/19 08:37 Creatinine 0.79 mg/dL (0.6-1.1) 12/23/19 08:37 Glucose 153 mg/dL (83-110) H 12/23/19 08:37 Calcium 9.7 mg/dL (7.8-10.44) 12/23/19 08:37 Total Bilirubin 1.0 mg/dL (0.2-1.2) 12/23/19 08:37 AST 15 U/L (5-34) 12/23/19 08:37 ALT 13 U/L (8-55) 12/23/19 08:37 Alkaline Phosphatase 69 U/L (40-110) 12/23/19 08:37 Creatine Kinase 61 U/L (29-168) 12/23/19 08:37 CK-MB (CK-2) 7.2 ng/mL (0-6.6) H* 12/23/19 08:37 Troponin I 0.290 ng/mL (< 0.028) H 12/23/19 08:37 Serum Total Protein 6.6 g/dL (6.0-8.3) 12/23/19 08:37 Albumin 3.9 g/dL (3.4-4.8) 12/23/19 08:37 - EKG Interpretation EK lead EKG shows normal sinus rhythm, Rate (beats per minute): 85, with no ectopics, Black, left, Nonspecific ST-T wave changes - Radiology Interpretation Chest x-ray Status: report reviewed by me Additional Comment: IMPRESSION: No radiographic evidence of acute cardiopulmonary process. Hospitalist H&P A/P - Problem (1) Atrial fibrillation with RVR Code(s): I48.91 - UNSPECIFIED ATRIAL FIBRILLATION Status: Acute (2) Non-STEMI (non-ST elevated myocardial infarction) Code(s): I21.4 - NON-ST ELEVATION (NSTEMI) MYOCARDIAL INFARCTION Status: Acute (3) Hypomagnesemia Code(s): E83.42 - HYPOMAGNESEMIA Status: Acute (4) Dehydration Code(s): E86.0 - DEHYDRATION Status: Acute (5) DM type 2 (diabetes mellitus, type 2) Status: Chronic (6) Hypertension Code(s): I10 - ESSENTIAL (PRIMARY) HYPERTENSION Status: Chronic (7) Hyperlipidemia Code(s): E78.5 - HYPERLIPIDEMIA, UNSPECIFIED Status: Chronic (8) Dementia Code(s): F03.90 - UNSPECIFIED DEMENTIA WITHOUT BEHAVIORAL DISTURBANCE Status: Chronic (9) Lumbar spinal stenosis Code(s): M48.061 - SPINAL STENOSIS, LUMBAR REGION WITHOUT NEUROGENIC ROSALVA Status: Chronic - Plan Plan: / with PMH A. fib, CAD, spinal spinal stenosis, dementia presents for tachycardia and right lower extremity weakness. Admit telemetry floor, observation status. Expected length of stay greater than 2 midnights. EKG normal sinus rhythm, no ST elevations. CXR no acute cardiopulmonary process. Troponin 0.290, CK-MB 7.2, mag 1.9 #A. fib with RVR atrial fibrillation with RVR Resolved upon presentation to hospital. Stop Lovenox. HAS-BLED score 2 points, moderate risk of major bleeding. CHADSVASC score 6. Will start Eliquis 5 mg twice daily. Continue ASA. Add BB. #Non-STEMI Likely demand ischemia Patient denies any chest pain, heart palpitations, shortness of breath. Give aspirin. Continue ASA. Trend troponin, check BNP, UA # Hypomagnesium Relative low, 1.9 Replace 2 g IVPB Recheck level in a.m. #Dehydration Mild. BUN 26, creatinine 0.79 Gentle IVF resuscitation Recheck level in a.m. #DM2 Takes metformin at home. Hold metformin. Mild ISS, AC/at bedtime Accu-Cheks. #Hypertension Presented hypertensive with NL HR, RR Continue home dose of lisinopril. Add BB. Continue to monitor BP. #Hyperlipidemia FLP in a.m. Continue patient's home dose of statin. #Dementia Patient has baseline per intermediate. Upon assessment, patient A&O x2-3. #Lumbar spinal stenosis Chronic, stable. History of sciatica. Assessment: Moves all extremities well, no focal weakness. Continue to monitor,. Up with assist to wheelchair. Fall precautions. Consult PT. SCDs for DVT prophylaxis. No GI prophylaxis. CODE STATUS is DNAR. BRIANA is her son, Ira at [phone]. Confirmed CODE STATUS with son over telephone. Discussed case with Dr. Briceno.
[2019-12-23] MEDS ORDERED: Nitroglycerin 0.4 MG TAB (25 Tab Bottle) SL PRN (12:21)
[2019-12-23] MEDS ORDERED: Senokot S 8.6-50 MG TAB PO PRN (12:26)
[2019-12-23] MEDS ORDERED: Calcium Carbonate 500 MG ChewTAB PO PRN (12:26)
[2019-12-23] MEDS ORDERED: Ondansetron PF 4 MG/2 ML Vial IVP PRN (12:26)
[2019-12-23] MEDS ORDERED: Ondansetron ODT 4 MG TAB PO PRN (12:26)
[2019-12-23] MEDS ORDERED: Acetaminophen 325 MG TAB PO PRN (12:26)
[2019-12-23] MEDS ORDERED: Sodium Chloride 0.9% 1,000 ML IV SCH (12:30)
[2019-12-23 12:31] LABS: Troponin I 0.878 ng/mL (< 0.028)
[2019-12-23] MEDS ORDERED: Dextrose 50% Abboject 50 ML SYRINGE SLOW IVP PRN (12:34)
[2019-12-23] MEDS ORDERED: HumaLOG 300 UNITS/3 ML VIAL SC PRN (12:34)
[2019-12-23] MEDS ORDERED: Dextrose 5% in Water 1,000 ML IV PRN (12:34)
[2019-12-23] MEDS ORDERED: Magnesium 2 GM/50 ML 2 GM in Premix Bag 1 BAG IVPB SCH ×2 (12:45→21:30)
[2019-12-23] MEDS ORDERED: Aspirin 325 MG TAB ONE (12:51)
[2019-12-23 15:22] LABS: Troponin I 1.468 ng/mL (< 0.028)
[2019-12-23] MEDS ORDERED: Metoprolol Tartrate 25 MG TAB PO SCH (16:30)
[2019-12-23 18:58] LABS: Troponin I 1.866 ng/mL (< 0.028)
[2019-12-23 19:12] LABS: SARS-CoV-2 MS2 Positive; SARS-CoV-2 N Gene Negative; SARS-CoV-2 S Gene Negative; SARS-CoV-2 by NAA Not Detected (NotDetected); SARS-CoV-2 orf1ab Negative
[2019-12-23] MEDS ORDERED: Apixaban 5 MG TAB PO SCH (21:00)
[2019-12-23] MEDS ORDERED: Enoxaparin Sodium 80 MG/0.8 ML SYRINGE SC SCH (21:00)
[2019-12-23] MEDS ORDERED: Electrolyte Replacement Protoc 1 EACH EACH FS SCH (21:15)
[2019-12-23] MEDS: Metoprolol Tartrate 25 MG TAB PO SCH (21:21)
[2019-12-24 02:16] VITALS: BMI 26.9
[2019-12-24 04:32] LABS: Bacteria/HPF 1+ HPF (None Seen); Bilirubin Negative (Negative); Blood, Urine Negative (Negative); Clarity Clear (Clear); Glucose, Urine (Dipstick) >=1000 mg/dL (Negative); Ketone, Urine Negative (Negative); Leukocyte 75 Leu/uL (Negative); Nitrite Negative (Negative); Protein, Urine (Dipstick) Negative (Neg-Trace); Specific Gravity, Urine 1.026 (1.002-1.036); Squamous Epithelial None Seen HPF (0-3); Urobilinogen Normal mg/dL (Less than 2); pH, Urine 5.5 (5.0-9.0)
[2019-12-24 04:36] LABS: #Basophils 0.1 thou/uL (0.0-0.2); #Lymphocytes 2.4 thou/uL (1.20-3.40); #Monocytes 0.4 thou/uL (0.11-0.59); #Neutrophils 3.6 thou/uL (1.40-6.50); %Basophils 1.3 % (0.0-1.0); %Eosinophils 0.7 % (0.0-10.0); %Lymphocytes 36.8 % (21.0-51.0); %Monocytes 6.7 % (0.0-10.0); %Neutrophils 54.4 % (42.0-75.0); Hemoglobin 14.2 g/dL (12.0-16.0); Mean Corpuscular HGB CONC 33.3 g/dL (32.0-36.0); Mean Corpuscular Hemoglobin 32.3 pg (27.0-31.0); Mean Corpuscular Volume 96.9 fL (78.0-98.0); Mean Platelet Volume 8.3 fL (7.4-10.4); Platelet Count 216 thou/uL (130-400); RBC Distribution Width 11.6 % (11.5-14.5); White Blood Cell (WBC) Count 6.6 thou/uL (4.8-10.8)
[2019-12-24 05:01] LABS: Anion Gap 13 mmol/L (10-20); BUN (Urea Nitrogen) 26 mg/dL (9.8-20.1); Calc. Creatinine Clearance 61 mL/min (70-130); Calcium 9.1 mg/dL (7.8-10.44); Carbon Dioxide 25 mmol/L (23-31); Chloride 109 mmol/L (98-107); Cholesterol 123 mg/dl (< 200 Desired); Estimated GFR-MDRD 76; Glucose 140 mg/dL (83-110); HDL Cholesterol 41 mg/dL (>60 Neg Risk); LDL Cholesterol, Calculated 58 mg/dL; Magnesium 2.5 mg/dL (1.6-2.6); Potassium 3.6 mmol/L (3.5-5.1); Sodium 143 mmol/L (136-145); Triglycerides 121 mg/dL (Less than 150)
[2019-12-24] MEDS ORDERED: Senokot S 8.6-50 MG TAB PO PRN (08:02)
[2019-12-24] MEDS: Metoprolol Tartrate 25 MG TAB PO SCH (08:58)
[2019-12-24] MEDS: Aspirin 81 mg Enteric Coated Tablet PO SCH (08:58)
[2019-12-24] MEDS: Gabapentin 100 MG CAP PO SCH ×3 (08:58→21:03)
[2019-12-24] MEDS ORDERED: FLU VACC QS2020-21(65YR UP)/PF 240 MCG/0.7 ML SYRINGE IM ONE (09:00)
[2019-12-24] MEDS ORDERED: Enoxaparin Sodium 80 MG/0.8 ML SYRINGE SC SCH ×2 (09:00)
[2019-12-24] MEDS: HumaLOG 300 UNITS/3 ML VIAL SC PRN (11:42)
--- NOTE | 2019-12-24 14:53 | PDOC.HOSPP ---
- Subjective Encounter Date: 12/24/19 Encounter Time: 11:15 Subjective: pt up in bed no complains - Objective Vital Signs & Weight: Vital Signs (12 hours) Temp Pulse Pulse Pulse Resp BP BP 12/24/19 11:42 98.9 F 57 L 16 12/24/19 10:42 58 L 57 L 184/88 H 174/79 H 12/24/19 07:03 98.6 F 67 16 12/24/19 03:24 98.5 F 62 16 BP Pulse Ox 12/24/19 11:42 164/78 H 94 L 12/24/19 10:42 12/24/19 07:03 183/94 H 96 12/24/19 03:24 179/77 H 95 Weight Weight 157 lb 1.6 oz I&O: 12/23/19 12/24/19 12/25/19 06:59 06:59 06:59 Intake Total 240 Output Total 400 Balance -160 Result Diagrams: 12/24/19 04:03 12/24/19 04:03 Additional Labs: Accuchecks 12/24/19 12/24/19 12/23/19 11:28 06:26 20:08 POC Glucose 186 H 124 H 98 Hospitalist ROS - Review of Systems Cardiovascular: denies: chest pain, palpitations, orthopnea, paroxysmal noc. dyspnea, edema, light headedness, other Gastrointestinal: denies: nausea, vomiting, abdominal pain, diarrhea, constipation, melena, hematochezia, other Genitourinary: denies: dysuria, frequency, incontinence, hematuria, retention, other - Medication Medications: Active Medications Generic Name Dose Route Start Last Admin Trade Name Jean PRN Reason Stop Dose Admin Aspirin 81 mg 12/24/19 09:00 12/24/19 08:58 Aspirin 81 Mg Enteric Coated Tablet PO 81 mg DAILY MANE Administration Enoxaparin Sodium 70 mg 12/24/19 09:00 12/24/19 08:57 Enoxaparin Sodium 80 Mg/0.8 Ml Syringe SC 70 mg 0900,2100 MANE Administration Gabapentin 100 mg 12/24/19 09:00 12/24/19 08:58 Gabapentin 100 Mg Cap PO 100 mg TID MANE Administration Insulin Human Lispro 0 units 12/23/19 12:34 12/24/19 11:42 Humalog 300 Units/3 Ml Vial SC 2 units .MILD SLIDING SCALE PRN Administration Mild Correctional Scale Metoprolol Tartrate 25 mg 12/23/19 21:00 12/24/19 08:58 Metoprolol Tartrate 25 Mg Tab PO 25 mg BID MANE Administration - Exam Neck: negative: supple, symmetric, no JVD, no thyromegaly, no lymphadenopathy, no carotid bruit, JVD Heart: negative: RRR, no murmur, no gallops, no rubs, normal peripheral pulses, irregular, diminshed peripheral pulses, murmur present, II/IV, III/IV Respiratory: negative: CTAB, no wheezes, no rales, no ronchi, normal chest expansion, no tachypnea, normal percussion, rales, rhonchi, tachypneic, wheezes Hosp A/P (1) Atrial fibrillation with RVR Code(s): I48.91 - UNSPECIFIED ATRIAL FIBRILLATION Status: Acute (2) Non-STEMI (non-ST elevated myocardial infarction) Code(s): I21.4 - NON-ST ELEVATION (NSTEMI) MYOCARDIAL INFARCTION Status: Acute (3) DM type 2 (diabetes mellitus, type 2) Status: Chronic (4) Hypertension Code(s): I10 - ESSENTIAL (PRIMARY) HYPERTENSION Status: Chronic - Plan Patient apparently was in A. fib RVR per EMS reports. In the ER at our hospital she was sinus rhythm and rate controlled. She is currently on anticoagulation. Patient has dementia and is oriented only x1. Will get cardiology to see this patient. Will order echo.
[2019-12-24] MEDS ORDERED: cloNIDine 0.1 MG TAB PO PRN (19:23)
--- NOTE | 2019-12-24 20:43 | CON ---
DATE OF CONSULTATION: HISTORY OF PRESENT ILLNESS: The patient is an 89-year-old woman, who presents with a rapid heart rate. The patient apparently is not a good historian. She apparently has a previous history of paroxysmal atrial fibrillation. She was brought in from the [facility] when she was noted to have a rapid heart rate. The patient denied having any palpitations. She denied to have any chest discomfort or dyspnea. PAST MEDICAL HISTORY: 1. Atrial fibrillation. 2. Diabetes mellitus. 3. Hypertension. 4. Dyslipidemia. 5. Dementia. 6. History of breast carcinoma. PAST SURGICAL HISTORY: Breast surgery and hysterectomy. ALLERGIES: CEPHALOSPORINS, CANTALOUPE, AND LETTUCE. MEDICATIONS: 1. Aricept 5 at bedtime. 2. Lisinopril 10 daily. 3. Neurontin 100 t.i.d. 4. Omeprazole 40 daily. SOCIAL HISTORY: Former smoker. PHYSICAL EXAMINATION: GENERAL: This is a well developed woman, who is alert and oriented x2. VITAL SIGNS: Blood pressure 164/78. NECK: No jugular venous distention. LUNGS: Coarse breath sounds bilateral. HEART: Regular rate and rhythm. Normal S1 and S2. 1/6 systolic murmur. ABDOMEN: Nondistended. EXTREMITIES: Showed no edema. LABORATORY DATA: Sodium 143, potassium 3.6, chloride 109, bicarbonate 25, BUN 26, creatinine 0.72. Troponin was 1.8. White blood cell count is 6.6, hemoglobin 14.2, hematocrit 42.7, platelets are 216. Telemetry monitoring atrial fibrillation with a rapid ventricular response. EKG normal sinus rhythm, left axis deviation, moderate voltage criteria for LVH. IMPRESSION: 1. Paroxysmal atrial fibrillation. 2. Type 2 myocardial infarction, most likely secondary to demand ischemia. 3. Diabetes mellitus. 4. Hypertension. 5. Dyslipidemia. 6. Dementia. This patient presented with rapid atrial fibrillation with a small elevation in her cardiac enzymes. The patient was asymptomatic. From a cardiac standpoint. She has had previous falls. I would recommend that she be placed on amiodarone to try to maintain sinus rhythm. We would avoid anticoagulation due to the patient's high fall risk. We will follow this patient with you through her hospitalization. Job ID: [id number] MTDD
[2019-12-24] MEDS ORDERED: Simvastatin 20 MG TAB PO SCH (21:00)
[2019-12-24] MEDS ORDERED: Amlodipine 5 MG TAB PO SCH (21:00)
[2019-12-24] MEDS: Amiodarone 200 MG TAB PO SCH (21:03)
[2019-12-24] MEDS: Atorvastatin Calcium 10 MG TAB PO SCH (21:03)
[2019-12-24] MEDS: Enoxaparin Sodium 30 MG/0.3 ML SYRINGE SC SCH (21:03)
[2019-12-25 04:07] LABS: Hemoglobin 14.3 g/dL (12.0-16.0); Platelet Count 216 thou/uL (130-400)
[2019-12-25] MEDS: Aspirin 81 mg Enteric Coated Tablet PO SCH (09:03)
[2019-12-25] MEDS: Amiodarone 200 MG TAB PO SCH ×2 (09:03→20:16)
[2019-12-25] MEDS: Gabapentin 100 MG CAP PO SCH ×3 (09:04→20:16)
--- NOTE | 2019-12-25 17:02 | PDOC.HOSPP ---
- Subjective Encounter Date: 12/25/19 Encounter Time: 11:50 Subjective: Patient up in bed denies any complaint she is getting her echocardiogram done. - Objective Vital Signs & Weight: Vital Signs (12 hours) Temp Pulse Resp BP BP BP BP 12/25/19 16:00 98.5 F 57 L 16 195/82 H 12/25/19 15:33 195/82 H 12/25/19 12:00 98.2 F 56 L 18 169/81 H 12/25/19 08:48 169/53 H 181/72 H 12/25/19 07:51 97.2 F L 51 L 17 165/80 H Pulse Ox 12/25/19 16:00 95 12/25/19 15:33 12/25/19 12:00 96 12/25/19 08:48 12/25/19 07:51 95 Weight Weight 157 lb 1.6 oz I&O: 12/24/19 12/25/19 12/26/19 06:59 06:59 06:59 Intake Total 240 1930 Output Total 400 1850 Balance -160 80 Result Diagrams: 12/25/19 03:35 12/25/19 03:35 Additional Labs: Accuchecks 12/25/19 12/25/19 12/25/19 16:52 11:31 06:13 POC Glucose 125 H 172 H 158 H 12/24/19 12/24/19 20:24 17:24 POC Glucose 234 H 104 H Hospitalist ROS - Review of Systems Cardiovascular: denies: chest pain, palpitations, orthopnea, paroxysmal noc. dyspnea, edema, light headedness, other Gastrointestinal: denies: nausea, vomiting, abdominal pain, diarrhea, constipation, melena, hematochezia, other Genitourinary: denies: dysuria, frequency, incontinence, hematuria, retention, other - Medication Medications: Active Medications Generic Name Dose Route Start Last Admin Trade Name Freq PRN Reason Stop Dose Admin Amiodarone HCl 400 mg 12/24/19 21:00 12/25/19 09:03 Amiodarone 200 Mg Tab PO 400 mg BID MANE Administration Aspirin 81 mg 12/24/19 09:00 12/25/19 09:03 Aspirin 81 Mg Enteric Coated Tablet PO 81 mg DAILY MANE Administration Atorvastatin Calcium 10 mg 12/24/19 21:00 10/06/20 21:03 Atorvastatin Calcium 10 Mg Tab PO 10 mg HS MANE Administration Clonidine 0.1 mg 12/24/19 19:23 12/25/19 15:33 Clonidine 0.1 Mg Tab PO 0.1 mg Q4H PRN Administration SBP Greater Than 180 Enoxaparin Sodium 30 mg 12/24/19 21:00 12/24/19 21:03 Enoxaparin Sodium 30 Mg/0.3 Ml Syringe SC 30 mg 2100 MANE Administration Gabapentin 100 mg 12/24/19 09:00 12/25/19 15:28 Gabapentin 100 Mg Cap PO 100 mg TID MANE Administration Insulin Human Lispro 0 units 12/23/19 12:34 12/24/19 11:42 Humalog 300 Units/3 Ml Vial SC 2 units .MILD SLIDING SCALE PRN Administration Mild Correctional Scale - Exam Neck: negative: supple, symmetric, no JVD, no thyromegaly, no lymphadenopathy, no carotid bruit, JVD Heart: negative: RRR, no murmur, no gallops, no rubs, normal peripheral pulses, irregular, diminshed peripheral pulses, murmur present, II/IV, III/IV Respiratory: negative: CTAB, no wheezes, no rales, no ronchi, normal chest expansion, no tachypnea, normal percussion, rales, rhonchi, tachypneic, wheezes Gastrointestinal: negative: soft, non-tender, non-distended, normal bowel sounds, no palpable masses, no hepatomegaly, no splenomegaly, no bruit, no guarding, no rigidity, tender to palpation, distended, diminished bowl sounds, voluntary guarding Hosp A/P (1) Atrial fibrillation with RVR Code(s): I48.91 - UNSPECIFIED ATRIAL FIBRILLATION Status: Acute (2) Non-STEMI (non-ST elevated myocardial infarction) Code(s): I21.4 - NON-ST ELEVATION (NSTEMI) MYOCARDIAL INFARCTION Status: Acute (3) DM type 2 (diabetes mellitus, type 2) Status: Chronic (4) Hypertension Code(s): I10 - ESSENTIAL (PRIMARY) HYPERTENSION Status: Chronic - Plan Patient apparently was in A. fib RVR per EMS reports. In the ER at our hospital she was sinus rhythm and rate controlled. She is currently on anticoagulation. Patient has dementia and is oriented only x1. Will get cardiology to see this patient. Will order echo. 10/7 patient's rate currently controlled. Patient put on amiodarone will continue. Get PT to patient. Patient's blood pressure is very labile will start patient on Norvasc 10 mg daily and also at about 10 mg daily. No beta- kacey since patient appears to be bradycardic.
[2019-12-25] MEDS ORDERED: Amlodipine 10 MG TAB PO SCH (17:15)
[2019-12-25] MEDS ORDERED: Lisinopril 10 MG TAB PO SCH (17:15)
[2019-12-25] MEDS: Atorvastatin Calcium 10 MG TAB PO SCH (20:16)
[2019-12-25] MEDS: Enoxaparin Sodium 30 MG/0.3 ML SYRINGE SC SCH (20:16)
[2019-12-25] MEDS ORDERED: Donepezil HCl 5 MG TAB PO SCH (21:00)
[2019-12-26 06:31] LABS: #Basophils 0.1 thou/uL (0.0-0.2); #Eosinphils 0.1 thou/uL (0.0-0.7); #Lymphocytes 3.1 thou/uL (1.20-3.40); #Monocytes 0.5 thou/uL (0.11-0.59); #Neutrophils 5.2 thou/uL (1.40-6.50); %Eosinophils 1.1 % (0.0-10.0); %Lymphocytes 34.7 % (21.0-51.0); %Monocytes 5.4 % (0.0-10.0); %Neutrophils 57.8 % (42.0-75.0); Hemoglobin 14.5 g/dL (12.0-16.0); Mean Corpuscular HGB CONC 32.7 g/dL (32.0-36.0); Mean Corpuscular Hemoglobin 32.1 pg (27.0-31.0); Mean Corpuscular Volume 98.2 fL (78.0-98.0); Mean Platelet Volume 8.4 fL (7.4-10.4); Platelet Count 216 thou/uL (130-400); RBC Distribution Width 11.5 % (11.5-14.5); Red Blood Cell (RBC) Count 4.51 mill/uL (4.20-5.40)
[2019-12-26] MEDS: Aspirin 81 mg Enteric Coated Tablet PO SCH (08:21)
[2019-12-26] MEDS: Amiodarone 200 MG TAB PO SCH (08:21)
[2019-12-26] MEDS: Gabapentin 100 MG CAP PO SCH ×2 (08:21→15:45)
[2019-12-26] MEDS ORDERED: Polyethylene Glycol 3350 17 GM Packet PO SCH (09:00)
[2019-12-26] MEDS ORDERED: Lisinopril 20 MG TAB PO SCH (09:00)
[2019-12-26] MEDS ORDERED: Amlodipine 10 MG TAB PO SCH (09:00)
[2019-12-26] MEDS ORDERED: metFORMIN 500 MG TAB PO SCH (09:00)
[2019-12-26 09:31] LABS: ALT (SGPT) 23 U/L (8-55); AST (SGOT) 22 U/L (5-34); Albumin 3.5 g/dL (3.4-4.8); Alkaline Phosphatase 67 U/L (40-110); Anion Gap 13 mmol/L (10-20); BUN (Urea Nitrogen) 26 mg/dL (9.8-20.1); Bilirubin, Total 0.8 mg/dL (0.2-1.2); Calc. Creatinine Clearance 54 mL/min (70-130); Calcium 9.4 mg/dL (7.8-10.44); Carbon Dioxide 25 mmol/L (23-31); Chloride 109 mmol/L (98-107); Estimated GFR-MDRD 67; Globulin 2.7 g/dL (2.4-3.5); Glucose 109 mg/dL (83-110); Potassium 3.8 mmol/L (3.5-5.1); Protein, Total 6.2 g/dL (6.0-8.3); Sodium 143 mmol/L (136-145)
[2019-12-26] MEDS: HumaLOG 300 UNITS/3 ML VIAL SC PRN (11:54)
[2019-12-26 15:44] VITALS: BP 133/61; TEMP 97.8
--- NOTE | 2019-12-27 00:31 | DIS ---
DATE OF ADMISSION: 12/23/2019 DATE OF DISCHARGE: 12/26/2019 DISCHARGE DIAGNOSES: 1. Atrial fibrillation with rapid ventricular response. 2. [id number] myocardial infarction. Type II 3. Diabetes. 4. Hypertension. HOSPITAL COURSE: The patient is a very pleasant 89-year-old female who initially was seen in her dementia unit for palpitations and was noted to have a heart rate in the 130s. At this time, she was treated appropriately by EMS and was brought into the hospital. She was currently not a candidate for anticoagulation given her risk for fall. Her rate was controlled in the hospital. She was seen by Cardiology. We did an echocardiogram. Her echocardiogram indicated an EF of 60% to 65% with some trace tricuspid regurgitation and severe diastolic dysfunction. The patient at this time was put on amiodarone, and she will undergo an amiodarone taper. HOME MEDICATIONS: 1. Amiodarone 400 mg twice a day for 2 weeks and then 400 mg daily for 2 weeks, and then four 200 mg daily. 2. Norvasc 10 mg daily, which is a new medication for her elevated blood pressure. 3. Aspirin 81 mg daily since she is not a candidate for anticoagulation. 4. Lisinopril 20 mg daily, which was increased from 10. 5. Aricept 5 mg at bedtime. 6. Senokot 2 tabs b.i.d. p.r.n. 7. Simvastatin 20 mg at bedtime. 8. Metformin 500 mg daily. 9. Gabapentin 100 mg t.i.d. 10. Omeprazole 40 mg daily. PHYSICAL EXAMINATION: VITAL SIGNS: On discharge were the following; temperature of 97.7, 57, 14, 96% on room air, and 151/67. GENERAL: She is awake, alert, and oriented x2. Does not appear in distress. CARDIOVASCULAR: S1 and S2 present. No murmurs, rubs, or gallops. ABDOMEN: Soft and nontender. Bowel sounds are present x2. DISPOSITION: Again, she will be discharged back to her dementia unit and she will follow up with her primary, and also will follow up with Cardiology. Job ID: [id number] MTDD
== END 2019-12-26 17:15 | DRG 282 ==
LOC: ERS 08:12 → INTOOBSV 10:29 → ERHOLD 10:29 → OBSVTOIN 10:29 → 2NO 18:54
PROVIDERS: ADMIT Student in an Organized Health Care Education/Training Program; ATTEND Student in an Organized Health Care Education/Training Program
DX: I48.0 Paroxysmal atrial fibrillation (principal); I21.A1 Myocardial infarction type 2; Z20.828 Contact with and (suspected) exposure to other viral communicable diseases; I10 Essential (primary) hypertension; E78.5 Hyperlipidemia, unspecified; Z66 Do not resuscitate; E11.9 Type 2 diabetes mellitus without complications; F03.90 Unspecified dementia, unspecified severity, without behavioral disturbance, psychotic disturbance, mood disturbance, and anxiety; K21.9 Gastro-esophageal reflux disease without esophagitis; E83.42 Hypomagnesemia; E78.00 Pure hypercholesterolemia, unspecified; I07.1 Rheumatic tricuspid insufficiency; M48.061 Spinal stenosis, lumbar region without neurogenic claudication; E86.0 Dehydration; K58.9 Irritable bowel syndrome, unspecified; Z79.84 Long term (current) use of oral hypoglycemic drugs; Z88.1 Allergy status to other antibiotic agents; Z88.8 Allergy status to other drugs, medicaments and biological substances; Z90.12 Acquired absence of left breast and nipple; Z98.890 Other specified postprocedural states; Z87.891 Personal history of nicotine dependence; Z85.3 Personal history of malignant neoplasm of breast
CPT/HCPCS: 36415; 36416; 71045; 80048; 80053; 80061; 81001; 82550; 82553; 82565; 83735; 83880; 84443; 84484; 85014; 85018; 85025; 85049; 87635; 93005; 93306; J1650; J3475; U0003